=== PATIENT | male | born 1965 | race Caucasian/White ===

== ENCOUNTER → 2021-07-09 11:00 | Outpatient (BNVA) | payer MEDICAID, SELFPAY | PROVIDERS: Visit Provider Family Medicine | DX: I10 Essential (primary) hypertension (principal); Z13.220 Encounter for screening for lipoid disorders; Z13.6 Encounter for screening for cardiovascular disorders; I63.9 Cerebral infarction, unspecified | CPT/HCPCS: 80053; 80061; 85025 ==

== ENCOUNTER 2021-11-17 14:19 | Outpatient (CLI) | payer MEDICAID, SELFPAY ==
--- NOTE | 2021-11-17 14:23 | CT_ITS ---
WS: [id number] CT scan of the head, 11/17/2021 Clinical Data: I63.9 - Cerebral infarction, unspecified Comparison: None. DLP: 3102.[address] scans at [facility] use at least one of these dose optimization techniques: automated e xposure control; mA and/or kV adjustment per patient size (includes targeted exams where dose is matc hed to clinical indication); or iterative reconstruction. Findings: The ventricular system is moderately dilated without shift. There is a small area of encephalomalacia in the right cerebellar hemisphere. There are small lacunar infarcts bilaterally. No recent infarct or hemorrhage is seen. There are no abnormal intracerebral masses. The brainstem is not remarkable. Bony windows of the skull and skull base show no fractures or erosions. The mastoid air cells, applications intern al auditory canals, sella turcica, intraorbital contents, and paranasal sinuses are unremarkable. CT/CT head wo con* [id number] Impression: 1. Moderate cerebral atrophy. 2. Lacunar infarcts. 3. Probable old right cerebellar hemispheric infarct.
== END 2021-11-17 14:20 | disposition home or self-care (01) ==
PROVIDERS: Visit Provider Family Medicine
DX: I63.9 Cerebral infarction, unspecified (principal); G31.9 Degenerative disease of nervous system, unspecified
CPT/HCPCS: 70450

== ENCOUNTER → 2022-07-28 11:48 | Outpatient (BNVA) | payer MEDICAID, SELFPAY | PROVIDERS: PCP Family Medicine; Visit Provider Family Medicine | DX: I63.9 Cerebral infarction, unspecified (principal); R26.9 Unspecified abnormalities of gait and mobility; Z91.81 History of falling; I10 Essential (primary) hypertension; E78.1 Pure hyperglyceridemia | CPT/HCPCS: 80053; 80061 ==

== ENCOUNTER 2022-10-18 13:00 | Outpatient (RCR) | payer SELFPAY | END 2022-10-20 23:59 | disposition home or self-care (01) | LOC: MPT 13:00 | PROVIDERS: PCP Family Medicine; Visit Provider Family Medicine | DX: I63.9 Cerebral infarction, unspecified (principal); R47.9 Unspecified speech disturbances | CPT/HCPCS: 97110; 97162 ==

== ENCOUNTER 2022-10-21 06:00 | Outpatient (RCR) | payer SELFPAY | END 2022-11-20 23:59 | disposition home or self-care (01) | LOC: MPT 06:00 | PROVIDERS: PCP Family Medicine; Visit Provider Family Medicine | DX: I63.9 Cerebral infarction, unspecified (principal); R47.9 Unspecified speech disturbances | CPT/HCPCS: 97110; 97112 ==

== ENCOUNTER 2022-11-03 06:00 | Outpatient (RCR) | payer SELFPAY | END 2022-11-20 23:59 | disposition home or self-care (01) | LOC: MST 06:00 | PROVIDERS: PCP Family Medicine; Visit Provider Family Medicine | DX: I69.328 Other speech and language deficits following cerebral infarction (principal) | CPT/HCPCS: 92507; 92523 ==

== ENCOUNTER 2022-11-21 06:00 | Outpatient (RCR) | payer SELFPAY | END 2022-12-21 23:59 | disposition home or self-care (01) | LOC: MPT 06:00 | PROVIDERS: PCP Family Medicine; Visit Provider Family Medicine | DX: I63.9 Cerebral infarction, unspecified (principal); R47.9 Unspecified speech disturbances | CPT/HCPCS: 97110; 97112; 97116; 97530 ==

== ENCOUNTER 2022-11-21 06:00 | Outpatient (RCR) | payer MEDICAID, SELFPAY | END 2022-12-21 23:59 | disposition home or self-care (01) | LOC: MST 06:00 | PROVIDERS: PCP Family Medicine; Visit Provider Family Medicine | DX: I69.328 Other speech and language deficits following cerebral infarction (principal) | CPT/HCPCS: 92507 ==

== ENCOUNTER 2022-12-22 01:00 | Outpatient (RCR) | payer MEDICAID, SELFPAY | END 2022-12-22 23:00 | disposition home or self-care (01) | LOC: MPT 01:00 | PROVIDERS: PCP Family Medicine; Visit Provider Family Medicine | DX: I63.9 Cerebral infarction, unspecified (principal); R47.9 Unspecified speech disturbances; F20.0 Paranoid schizophrenia; R41.3 Other amnesia; Z86.73 Personal history of transient ischemic attack (TIA), and cerebral infarction without residual deficits; I10 Essential (primary) hypertension; F17.210 Nicotine dependence, cigarettes, uncomplicated | CPT/HCPCS: 96116; 99205 ==

== ENCOUNTER 2023-01-17 09:21 | Outpatient (CLI) | payer MEDICAID, SELFPAY ==
--- NOTE | 2023-01-17 10:15 | USCV_ITS ---
Lul Wadsworth Age: 57 Gender: M : 1965 Exam Date: 01/17/2023 09:51 Ordering Phys: Lora Dawkins MD Technologist: RODDY Exam Location: [facility] [place] Indication: murmur palpations BP: / HR: 53 Rhythm: Sinus Technical Quality: Adequate MEASUREMENTS (Male / Female) Normal Values 2D ECHO LV Diastolic Diameter PLAX 4.8 cm 4.2 - 5.9 / 3.9 - 5.3 cm LV Systolic Diameter PLAX 3.6 cm LV Chamber Size 4.0 cm IVS Diastolic Thickness 0.8 cm 0.6 - 1.0 / 0.6 - 0.9 cm IVS Systolic Thickness 1.0 cm LVPW Diastolic Thickness 1.1 cm 0.6 - 1.0 / 0.6 - 0.9 cm LVPW Systolic Thickness 1.3 cm RV Chamber Size 2.9 cm LVOT Diameter 2.1 cm LV Ejection Fraction 2D Teich 50.6 % LV Ejection Fraction MOD 2C 59.7 % LV Ejection Fraction 2C AL 58.1 % LA Diameter 3.4 cm LA Width 2.8 cm LA Height 3.2 cm RA Width 3.6 cm RA Height 3.8 cm Aorta at Sinotubular Diameter 3.1 cm IVC Diameter 1.3 cm M-MODE Aortic Annulus Diameter 3.4 cm LA Ao Ratio MM 1.1 MV E Point Septal Separation 0.7 cm DOPPLER MV Peak Velocity 87.0 cm/s MV Area PHT 2.6 cm squared Mitral E to A Ratio 0.8 MV E' Velocity 34.0 cm/s Mitral E to MV E' Ratio 8.6 Mitral E to LV E' Lateral Ratio 7.8 Mitral E to LV E' Septal Ratio 9.8 TR Peak Velocity 222.8 cm/s TR Peak Gradient 19.9 mmHg TR Mean Velocity 194.2 cm/s TR Mean Gradient 15.7 mmHg TR Velocity Time Integral 79.3 cm TV Peak E Velocity 70.0 cm/s Right Atrial Pressure 3.0 mmHg Pulmonary Artery Systolic Pressu 22.9 mmHg PV Peak Velocity 73.0 cm/s RV Acceleration Time 0.1 s RV Ejection Time 0.3 s RV AcT/ET 0.3 FINDINGS Left Ventricle Normal left ventricular size and systolic function, EF 57 %. No regional wall motion abnormalities. Mild left ventricular hypertrophy. Grade I/IV diastolic dysfunction (abnormal relaxation filling pattern), normal to mildly elevated filling pressures. Right Ventricle The right ventricle is normal in size and function. Right Atrium The right atrium is normal in size. Left Atrium The left atrium is normal in size. Mitral Valve Trace mitral valve regurgitation. Aortic Valve No gross abnormalities noted Tricuspid Valve Trace tricuspid valve regurgitation. Pulmonic Valve No gross abnormalities noted Pericardium Normal pericardium without effusion. Aorta Normal ascending aorta dimension. IVC Normal inferior vena cava. CONCLUSIONS Normal left ventricular size and systolic function, EF 57 %. No regional wall motion abnormalities. Mild left ventricular hypertrophy. Grade I/IV diastolic dysfunction (abnormal relaxation filling pattern), normal to mildly elevated filling pressures. Trace tricuspid valve regurgitation. Estimated pulmonary artery peak systolic pressure of 23 mmHg Trace mitral valve regurgitation. No intracardiac masses. No pericardial effusion No similar previous studies are available for comparison Dr Franck Bianchi MD [facility] (Electronically Signed) Final Date: 18 January 2023 08:00 S
[2023-01-17] MEDS: iohexol 350 mg/mL 500 mL Btl (per mL) IV (11:33)
--- NOTE | 2023-01-17 12:00 | CT_ITS ---
WS: [id number] CTA HEAD AND NECK TECHNIQUE: Contrast enhanced CTA of the head and neck with coronal and sagittal reformatted images an d maximum intensity projection (MIP) images. NASCET criteria utilized. CLINICAL INFORMATION: I63.9 - Cerebral infarction, unspecified COMPARISON: CT November 17, 2021 DLP: 1595.[address] scans at [facility] use at least one of these dose optimization techniques: automated e xposure control; mA and/or kV adjustment per patient size (includes targeted exams where dose is matc hed to clinical indication); or iterative reconstruction. FINDINGS: No evidence of intracranial hemorrhage or mass effect. Advanced small vessel changes with m oderate parenchymal volume loss. Chronic 1.7 x 1.8 cm infarct in the RIGHT cerebellar hemisphere with encephalomalacia. Chronic tiny lacunar infarcts in the bilateral basal ganglia, thalami, midbrain an d kyra. Chronic lacunar infarcts in the cerebellum. Vascular calcification. Mastoid air cells well ae rated. Paranasal sinuses are well aerated with mild mucosal thickening in the ethmoid air cells. Norm al posterior nasopharynx. Polypoid mucosal thickening involving the nasal turbinates. Atrophy is slig htly progressed compared to 2020. Small vessel changes appear slightly progressed. RIGHT: RIGHT common carotid artery is patent. RIGHT carotid bulb is patent. No significant RIGHT ICA stenosis. ICA is patent to the pelvis. Tortuous RIGHT cervical ICA at the skull base. Mild cavernous carotid calcification. LEFT: LEFT common carotid artery is patent. No significant LEFT ICA stenosis. LEFT ICA is tortuous bu t patent to the skull base. Minimal LEFT cavernous carotid calcification. INTRACRANIAL CTA: RIGHT dominant vertebral artery. Smaller but patent LEFT vertebral artery. Basilar artery is patent. Normal vascularity to the [employer] territory bilaterally. Both ICAs are patent at the skull base. Small LEFT A1 segment. Normal vascularity to the SHAWN and MCA territories bilaterally. No evidence of proximal flow limiting stenosis or aneurysm. Somewhat decreased vascularity overlying the LEFT frontal and parietal convexities and anterior divis ion LEFT MCA. This is likely due to 2nd and 3rd order branch stenosis with small vessel disease. Rashid mmend correlation with history of hypertension or diabetes. Visualized dural venous sinuses appear patent. CT/CT angio headneck* [id number] IMPRESSION: 1. No significant ICA stenosis bilaterally. Mild calcified atheromatous diseas e both carotid bulbs without significant stenosis. 2. Both cervical ICAs are tortuous LEFT greater than RIGHT remain patent with mild base. 3. RIGHT dominant vertebral artery. Smaller but patent LEFT vertebral artery. 4. No evidence of proximal flow-limiting intracranial stenosis. 5. Somewhat decreased vascularity overlying the LEFT frontal and parietal conv exities and anterior division LEFT MCA. This is likely due to 2nd and 3rd order branch stenosis with small vessel disease. 6. Advanced small vessel changes prominent for patient this age. Multiple tiny chronic lacunar infarcts described above. 7. Moderate parenchymal volume loss progressed compared to 2020.
== END 2023-01-17 09:22 | disposition home or self-care (01) ==
PROVIDERS: PCP Family Medicine; Visit Provider Specialist
DX: I63.9 Cerebral infarction, unspecified (principal); R00.2 Palpitations; I08.1 Rheumatic disorders of both mitral and tricuspid valves
CPT/HCPCS: 70496; 70498; 93306; Q9967

== ENCOUNTER → 2023-03-23 09:57 | Outpatient (BNVA) | payer MEDICAID, SELFPAY | PROVIDERS: PCP Family Medicine; Visit Provider Specialist | DX: R41.3 Other amnesia (principal); I10 Essential (primary) hypertension; F20.0 Paranoid schizophrenia; Z86.73 Personal history of transient ischemic attack (TIA), and cerebral infarction without residual deficits; F17.210 Nicotine dependence, cigarettes, uncomplicated | CPT/HCPCS: 99215 ==

== ENCOUNTER → 2023-08-01 10:00 | Outpatient (BNVA) | payer MEDICAID, SELFPAY | PROVIDERS: PCP Family Medicine; Visit Provider Family Medicine | DX: E78.1 Pure hyperglyceridemia (principal); I10 Essential (primary) hypertension; I63.9 Cerebral infarction, unspecified; Z74.09 Other reduced mobility; Z78.9 Other specified health status; R26.9 Unspecified abnormalities of gait and mobility; Z91.81 History of falling; F20.0 Paranoid schizophrenia; F17.200 Nicotine dependence, unspecified, uncomplicated | CPT/HCPCS: 80053; 80061; 85025 ==

== ENCOUNTER → 2023-12-07 11:13 | Outpatient (BNVA) | payer MEDICAID, SELFPAY | PROVIDERS: PCP Family Medicine; Visit Provider Family Medicine | DX: R31.9 Hematuria, unspecified (principal); R82.998 Other abnormal findings in urine | CPT/HCPCS: 81000; 81003; 87086 ==

== ENCOUNTER → 2023-12-20 16:11 | Outpatient (BNVA) | payer MEDICAID, SELFPAY | PROVIDERS: PCP Family Medicine; Referring Provider Family Medicine; Visit Provider Family Medicine | DX: R31.9 Hematuria, unspecified (principal); R82.998 Other abnormal findings in urine | CPT/HCPCS: 81000; 87086 ==

== ENCOUNTER → 2024-07-17 15:17 | Outpatient (BNVA) | payer MEDICAID, SELFPAY | PROVIDERS: PCP Family Medicine; Visit Provider Nurse Practitioner Family | DX: R39.198 Other difficulties with micturition (principal) | CPT/HCPCS: 80053; 85025; G0103 ==